=== PATIENT | female | born 1945 | race Caucasian/White ===

== ENCOUNTER 2024-11-17 13:43 | Outpatient (CLI) | payer MEDICARE, OTHER, SELFPAY ==
--- OUTSIDE RECORDS SUMMARY | 2006-11-26 07:44 | XMS_ITS | Continuity of Care Document ---
Author Organization [facility] Address [address] [place] [address] Phone Care Team Providers Care Electronic Page Makeup System Operator Name Role Phone Latonya Rain Unavailable Unavailable Procedures Procedure Date Office/outpatient Visit, Est Post-op Follow-up Visit Post-op Follow-up Visit Post-op Follow-up Visit Remove Cataract, Insert Lens Eye Exam & Treatment IOLMaster Advance Directives Directive Yes / No Effective Date File Name No Information Encounters Encounter Description Practice Location Reason(s) For Visit Diagnoses Date Provider Providers Copied on Encounter Office/outpat ient Visit, Est [facility], [address] [place] [address] [address], [place], [place], [id number], [place] tel:[phone] [facility] No Information [address] Longoria [address] [facility] , [address], [place], [place], [facility] [place][note 2], [place]. tel:[phone] [facility], [address] [place] [address] [address], [place], [place], [id number], [place] tel:[phone] [facility] No Information 9-200 7 Brise[address]da Longoria [address] [facility] , [address], [place], [address], [place]. tel:[phone] [facility], [address] [place] [address] [address], [place], [place], [id number], [place] tel:[phone] [facility] No Information 6-200 7 Briseyda Hanks. [address] [facility] , [address], [place], [place], [facility] [place][note 2], . tel:[phone] [facility], [address] [facility] [place] [address], [place], [place], [id number], tel:[phone] SEC [facility] No Information 0 8-200 7 Brise[address]da Hanks. [address] [facility] , [address], [place], [place], [facility] [place][note 2], [place]. tel:[phone] [facility], [id number] [place] [address] [address], [place], [place], [id number], tel:[phone] [facility] No Information 0 7-200 7 Brise[address] Hanks. [address] [facility] , [address], [place], [place], [facility] [place][note 2], [place]. tel:[phone] [facility], [address] [facility] [place], [facility] [address], [place], [place], [id number], tel:[phone] [facility] No Information 2-200 7 Brise[address] Longoria [address] [facility] , [address], [place], [place], [facility] [place][note 2], . tel:[phone] Referring Provider: Latonya Pedroza, [address], [place], [place], [facility] [place][note 2]. tel:[phone] Family History Family Member Type Diagnosis Age At Onset No Information Payers Payer name Insurance type Covered republican ID Authoriza tion(s) No Information Social History Type Description Quantity Date Captured Comments Sex Female Smoking Status No Information Chief Complaint And Reason For Visit No Information Reason For Referral Reason For Referral No Information History Of Present Illness Encounter Date Complaint History Of Prese nt Illness No Information Functional Status Date Functional Assessmen t No Information Instructions Date Instruction Additional Infor mation No Information Assessments Type Assessment Date No Information Patient Care Teams Name Effective Dates (start - stop) Status Members No Information
--- OUTSIDE RECORDS SUMMARY | 2024-11-17 14:00 | XMS_ITS | Clinical Summary ---
Author Organization [facility] [employer] Address [address] [place] [address] Care Team Providers Care Window Framer Name Role Phone Faraz Lake MD Primary Care Provider [phone] Source Comments [facility],non-owned Affiliates and Associated Physician Practices is amultiple site organization consisting of ambulatory clinics and hospital sitesin [place] and [place]. This disclosure is being madepursuant to the Care Everywhere program and may not contain all information available regarding this patient. Last updated 17.[facility] Allergies Active Allergy Reactions Criticality Noted Date Comments Amoxicillin Rash Medium 09/11/2019 Penicillins Rash Medium 04/24/2016 Medications * Be aware that medications may not be up to date on this document. Alwaysverify current medications with the patient. hydroCHLOROthia zide (HYDRODIURIL) 25 MG tablet Take 25 mg by mouth once daily 0 Active RESTASIS 0.05 % ophthalmic suspension 9 Active pantoprazole EC (PROTONIX) 40 MG tablet Take 40 mg by mouth 2 times daily 0 Active Multiple Vitamins-Minera ls (PRESERVISION AREDS 2 PO) Active aspirin EC (ECOTRIN) 81 MG tablet Take 81 mg by mouth once daily Active acetaminophen (TYLENOL) 500 MG tablet Take 500 mg by mouth every 6 hours as needed Active escitalopram (LEXAPRO) 20 MG tablet Take 10 mg by mouth once daily 1 Active atenolol (TENORMIN) 100 MG tablet Take 100 mg by mouth once daily 1 Active amitriptyline (ELAVIL) 10 MG tablet Take 10 mg by mouth at bedtime 1 Active sucralfate (CARAFATE) 1 GM tablet Take 1 g by mouth as needed 1 Active tretinoin (RETIN-A) 0.05 % cream APPLY TOPICALLY TO THE AFFECTED AREA DAILY NEEDED 1 Active pravastatin (PRAVACHOL) 10 MG tablet 5 mg EVERY OTHER DAY 1 Active glycopyrrolate (ROBINUL) 1 MG tablet Take 1 mg by mouth 2 times daily 1 Active celecoxib (CELEBREX) 200 MG capsule 1 Active amLODIPine (Norvasc) 5 MG tablet Take 1 (one) tablet by mouth once daily 5 Active azithromycin (Zithromax) 250 MG tablet 2 tablets on the first day, then 1 tablet daily for 4 days Orally Once a day for 5 day(s) 5 Active azithromycin (Zithromax) 250 MG tablet 2 tablets on the first day, then 1 tablet daily for 4 days Orally Once a day for 5 day(s) 5 Active chlorhexidine (Peridex) 0.12 % solution RINSE AND SPIT 15ML BY MOUTH AFTER BREAKFAST AND BEFORE BEDTIME 5 Active clindamycin (Cleocin) 150 MG capsule TAKE 1 CAPSULE BY MOUTH EVERY 6 HOURS UNTIL ALL TAKEN 5 Active diclofenac sodium (Voltaren) 1 % gel Apply 4 (four) g to affected area 4 times daily 5 Active losartan (Cozaar) 50 MG tablet Take 1 (one) tablet by mouth 2 times daily 5 Active Medrol 4 MG tablet as directed Orally as directed for 6 days 5 Active nortriptyline (Pamelor) 10 MG capsule Take 1 (one) capsule by mouth at bedtime 5 Active celecoxib (CeleBREX) 200 MG capsule Take 1 (one) capsule by mouth once daily 90 capsule 3 5 Active Active Problems No known active problems Encounters Date Type Department Care Team Description 11/13/2024 Orders Only [facility] - Orthopedic Surgery [address] [place] [id number] Huan Gamble MD Left knee pain, unspecified chronicity from Last 3 Months Immunizations Immunization Administration Dates Next Due INFLUENZA VACCINE 11/14/2020, 9,10/29/2017,2016,12/09/2013,12/08/2012,01/20/2003 INFLUENZA VACCINE, ADJUVANTE D, QUADR. (FLUAD QUADRIVALENT; 65Y+) (AIIV4) 11/20/2019 INFLUENZA VACCINE, HIGH-DOSE , QUADR. (FLUZONE HIGH-DOSE QUADRIVALENT; 65Y+), 0.7 ML (HD-IIV4) 11/20/2019 PNEUMOCOCCAL PCV VACCINE 12/10/2015 PNEUMOCOCCAL PPSV23 10/24/2012 Pneumococcal Pcv13 Conj 07/22/2018 TDAP (7yrs+) 07/22/2018 Td (Adult), 2 Lf Tetanus Tox oid, Adsorbed, Pf 06/20/2004 ZOSTER VACCINE, LIVE 10/24/2012,10/09/2010 Zoster Hzv Vacc Recombinant Inj Im 08/22/2018, Social History Tobacco Use Types Packs/Day Years Used Date Smoking Tobacco: Never Smokeless Tobacco: Never Tobacco Cessation:Counseling Given: Not Answered Alcohol Use Standard Drinks/Week Comments Yes 3 (1 standard drink = 0.6 oz pur e alcohol) AUDIT-C Answer Date Recorded Q1: How often do you have a drink containing alc ohol? 2-4 times a month 09/11/2019 Average Number of Drinks Not on file 020 Frequency of Binge Drinking Not on file 08/19 PHQ-2 Answer Date Recorded Patient Health Questionnaire-2 Score 0 08/05/2024 Comments No Sex and Gender Information Value Date Recorded Sex Assigned at Not on file Legal Sex Female 9:31 AM CDT Gender Identity Not on file Sexual Orientation Not on file Last Filed Vital Signs Vital Sign Reading Time Taken Comments Blood Pressure 132/82 12/14/2020 2:46 PM CDT Pulse 62 12/14/2020 2:46 PM CDT Temperature 36.2 C (97.1 F) 12/14/2020 2:46 PM CDT Respiratory Rate - - Oxygen Saturation 96% 12/14/2020 2:46 PM CDT Inhaled Oxygen Concentration - - Weight 85.3 kg (188 lb) 12/14/2020 2:46 PM CDT Height 162.6 cm (5' 4) 12/14/2020 2:46 PM CDT Body Mass Index 32.27 12/14/2020 2:46 PM CDT Plan of Treatment Upcoming Encounters Date Type Department Care Team (Late st Contact Info) Description 12/16/2024 10:15 AM CDT Office Visit [facility] - Orthopedic Surgery [address] [place] [address] Huan Gamble MD [address] [address] Health Maintenance Due Date Last Done Comments MEDICARE AWV 12 MONTHS 1945 Opioid Medication Agreement - Annual 1945 HEPATITIS C SCREENING 05/04/1965 Respiratory Syncytial Virus (RSV) Vaccine Pt: or over 60 yrs (1 - 1-dose 75+ series) 05/08/2022 COVID-19 VACCINE ( season) 2024 02/02/2021, 04/21/2020, 03/24/2020 INFLUENZA VACCINE (#1) 2024 , 11/14/2020, 11/20/2019, Additional history exists DTAP/TDAP/TD VACCINES (2 - Td or Tdap) 07/22/2028 07/22/2018, 06/20/2004 PNEUMOCOCCAL VACCINE 50+ Completed 019, 12/10/2015, 10/24/2012 ZOSTER VACCINE Completed 08/22/2018, 05/20, 10/24/2012, Additional history exists BONE DENSITY TESTING Completed 12/18/2023, 08/02/2021, 08/26/2018 DEPRESSION SCREENING Completed 08/12/2024 HEPATITIS B VACCINE Aged Out No longe r eligible based on patient's age to complete this topic HIB VACCINE Aged Out No longer eligi ble based on patient's age to complete this topic HPV VACCINE Aged Out No longer eligi ble based on patient's age to complete this topic MENINGOCOCCAL (Group B) VACCINE SHARED DECISION-MAKING Aged Out No longer eligible based on patient's age to complete this topic MENINGOCOCCAL GROUPS A/C/Y/W VACCINE Aged Out No longer eligible based on patient's age to complete this topic Goals Goal Patient Goal Type Associated Problems Recent Progress Patient-Stated? Author Mobility General No Blessing Lopez RN Note: Expected end date: 12/18/2019 The goal is to maintain or improve your mobility at the optimum level for you. Interventions: Insurance MEDICARE [facility] MEDICARE Care Teams Window Framer Relationship Specialty Start Date End Date Faraz Lake MD [address] [facility] [address] [place] [address] PCP - General Family Medicine 08/12/24
--- OUTSIDE RECORDS SUMMARY | 2024-11-17 14:00 | XMS_ITS | Patient Health Record ---
Author Organization 1 OF [facility] Address [address] [place] [address] Care Team Providers Care Painter Supervisor Name Role Phone Bryanna Wylie MD Primary Care Provider Sandip Farr Unavailable Allergies Allergen (clinical drug ingredient) Drug/Non Drug Allergy documented on EMR Reaction Allergy Type Onset Date Status amoxicillin Amoxicillin Unknown Drug Allergy Act chrissie Results Component Value Reference Range Notes X ray : Lower leg, left Reviewed date:05/27/2024 01:38:16 PM Interpretation:No significant radiologic evidence of abnormality Performing Lab: Notes/Report: No significant radiologic evidence of abnormality Reason For Referral No Information Medications Medication SIG (Take, Route, Frequency, Duration) Notes Start Date End Date Status Amitriptyline HCl Ac tive Azithromycin 250 MG Tablet 2 tablets on the first day, then 1 tablet daily for 4 days Orally Once a day; Duration: 5 day(s) 06/17/2024 Active Medrol 4 MG Tablet Therapy Pack as directed Orally as directed; Duration: 6 days 06/11/2024 Not-Taking/PRN Azithromycin 250 MG Tablet 2 tablets on the first day, then 1 tablet daily for 4 days Orally Once a day; Duration: 5 day(s) 06/11/2024 Not-Taking/PRN Diclofenac Sodium 1 % Gel as directed Topical Apply no more than 4 grams to affected area of foot Q6-8 hours PRN Pain; Duration: 30 days 06/17/2024 Active hydroCHLOROthiazide 25 MG Tablet 1 tablet Orally Once a day Active Atenolol 50 MG Tablet 1 tablet Orally Once a day Active Restasis 0.05 % Emulsion 1 into affected eye Ophthalmic Twice a day Active PreserVision AREDS Capsule Orally Active Motrin PRN Not-Taking /PRN Tylenol PRN Not-Taking /PRN Pantoprazole Sodium Active Pravastatin Sodium A ctive Social History Tobacco Use: Social History Observation Description Date Details (start date - stop date) Never Smoker NA - NA Social History Tobacco Use: Social Info Question Answer Notes Tobacco Use/Smoking Are you a nonsmoker Additional Details Category Social Info Options Details Miscellaneous: Exercise: Moderate Housing: owns a home Occupation: Retired Drugs/Alcohol: Alcohol use: Socially Problems Problem Type SNOMED Code ICD Code Onset Dates Problem Status W/U Status Risk Notes Problem Walking disability (443011431) Difficulty in walking (R26.2) Active confirmed Problem Acquired hammer toe of left foot (6545815897637127 ) Hammer toe of left foot (M20.42) Active confirmed Problem Acquired hammer toe of left foot (4330747785149379 ) Hammertoe of second toe of left foot (M20.42) Active confirmed Problem Osteomyelitis (71483722) Osteitis of foot (M86.9) Active confirmed Problem Personal history of primary malignant neoplasm of breast (247005141) HX: breast cancer (Z85.3) Active confirmed Vital Signs Height 64 in 06/11/2024 Weight 180 lbs 06/11/2024 BMI 30.89 kg/m2 06/11/2024 Encounters Encounter Location Date Provider Diagnosis 1 OF [facility] [address] [employer] [address] [address] 01/14/2024 Sandip Wadsworth Hammer toe of left foot M20.42 ; Incurvated nail L60.8 ; Toe pain, left M79.675 ; Nail disorder, unspecified L60.9 ; Onychogryphosis L60.2 ; Nail dystrophy L60.3 and Contracture of toe of left foot M20.5X2 1 OF [facility] [address] [employer] [address] [place] [address] 01/27/2024 Sandip Wadsworth Hammer toe of left foot M20.42 ; Toe pain, left M79.675 and Contracture of toe of left foot M20.5X2 1 OF [facility] [place] [address] [place] [address] 01/31/2024 Sandip Wadsworth Surgical aftercare, musculoskeletal system Z47.89 and Contracture of toe of left foot M20.5X2 1 OF [facility] [address] [place] [address] 05/14/2024 Sandip Wadsworth Contracture of toe of left foot M20.5X2 ; Mass of soft tissue of lower leg M79.89 ; Left leg pain M79.605 ; Toe pain, left M79.675 and HX: breast cancer Z85.3 [facility] [address] [place] [address] 05/22/2024 Christophtroy Wadsworth Toe pain, left M79.675 ; Contracture of toe of left foot M20.5X2 ; Sesamoiditis of right foot M25.871 ; Pain of right great toe M79.674 and Left leg pain M79.605 [facility] [address] [place] [address] 05/28/2024 Christlynda Wadsworth Toe pain, left M79.675 ; Contracture of toe of left foot M20.5X2 ; Pain of right great toe M79.674 and Surgical aftercare, musculoskeletal system Z47.89 1 [facility] [address] [place] [address] 06/11/2024 Sandip Wadsworth Toe pain, left M79.675 ; Surgical aftercare, musculoskeletal system Z47.89 ; Pain in joint of left foot M25.572 and Hammertoe of second toe of left foot M20.42 3 [facility] [address] [address] 06/17/2024 Sandip Wadsworth Contracture of toe of left foot M20.5X2 ; Pain in joint of left foot M25.572 ; Hammertoe of second toe of left foot M20.42 and Surgical aftercare, musculoskeletal system Z47.89 1 OF [facility] [address] [place] [address] 05/04/2024 Sandip Wadsworth 1 OF Perez [facility] [employer] [address] [address] 05/14/2024 Sandip Wadsworth Assessments Encounter Date Diagnosis (ICD Code) Assessment Notes Treatment Notes Treatment Clinical Notes Section Notes 01/14/2024 Incurvated nail (ICD-10 - L60.8) Patient has had multiple matrixectomy's of the left hallux nail plate but she continues to have some recurrence of growth of nail plate tissue from mostly the nailbed but to some degree the nail root as well. Today there is mild incurvation of the nail plate at the distal and lateral margins but no acute paronychia. Recommended and performed debridement of the nail as tolerated. Patient will follow-up as needed for this condition. 01/14/2024 Hammer toe of left foot (ICD-10 - M20.42) Discussed various options for managing the pain in the left second hammertoe, including tenotomy and strapping the toe to simulate the effects of a tenotomy. I recommended starting with strapping the toe to see if it alleviates the discomfort. The toenail was trimmed. The patient can shower and leave the tape on as long as it remains comfortable. Pt can continue to wea spacer. F/U in 2 week 01/27/2024 Hammer toe of left foot (ICD-10 - M20.42) Recommended proceeding with LT 2nd toe flexor tenotomy today. 01/27/2024 Toe pain, left (ICD-10 - M79.675) 01/31/2024 Surgical aftercare, musculoskeletal system (ICD-10 - Z47.89) The surgical toes were cleaned with alcohol and Patient advised the procedure appears to be healing and no bandage necessary at this point and tomorrow the patient may shower. Patient was advised to allow ster-strips to fall off on their own but may remove after 7 days. Patient instructed to clean toe with rubbing alcohol daily for at least 1 week and monitor for SOI. Patient may resume closed toe shoes as tolerated. Contact office with any concerns, otherwise no further f/u for this condition necessary 05/14/2024 Contracture of toe of left foot (ICD-10 - M20.5X2) We discussed performing a repeat flexor tenotomy of the LT 2nd toe along with a capsulotomy procedure of the IPJ of the toe in the office versus standard hammertoe surgery in the OR. We discussed her results may not be cosmetically adequate and her toe may continue to deviate depsite undergoing total hammertoe surgery in the OR. After much discussion, and no guarantees with either procdure, she chose to proceed with the flexor tenotomy/capsulot thais at a later date due to obligations in the next few days. The procedure was scheduled for next week. 05/14/2024 Mass of soft tissue of lower leg (ICD-10 - M79.89) 05/22/2024 Contracture of toe of left foot (ICD-10 - M20.5X2) A tenotomy procedure for the left second toe was recommended today. The patient agreed to the procedure, and consent was obtained. Procedure details are outlined below, and post-operative instructions were provided to the patient. F/u 1 week 05/22/2024 Toe pain, left (ICD-10 - M79.675) 05/28/2024 Toe pain, left (ICD-10 - M79.675) 06/11/2024 Toe pain, left (ICD-10 - M79.675) We discussed a ligament or tendon around the joint may have ruptured, but I would expect the pain to be more on the bottom of her foot. We discussed gout as a possible reason for her redness, but unlikely. She declined taping of the toe today. Due to the possibility of infection, she will be prescribed a Z-pack and a Medrol dose pack today (Medrol starting tomorrow). Verdi padding was taped to the bottom of her foot to alleviate her pain. She will monitor her symptoms and call if they worsen. 06/17/2024 Contracture of toe of left foot (ICD-10 - M20.5X2) Discussed possible surgical intervention for LT 2nd toe if it continues to bother her and specifically discussed hammertoe repair withby PIPJ arhtrodesis. However before proceeding with surgery I recommended giving it more time and tx today with topical diclofenac and offload in sx shoe. Also offered patient a Rx for Z pack to take if she is concerned there is infection. Pt will call if she starts the abx. Prescription sent to pharmacy. Patient will RTO PRN if the condition fails to improve. 06/17/2024 Pain in joint of left foot (ICD-10 - M25.572) 06/11/2024 Surgical aftercare, musculoskeletal system (ICD-10 - Z47.89) 06/11/2024 Pain in joint of left foot (ICD-10 - M25.572) 05/28/2024 Contracture of toe of left foot (ICD-10 - M20.5X2) 05/22/2024 Sesamoiditis of right foot (ICD-10 - M25.871) 05/14/2024 Left leg pain (ICD-10 - M79.605) We discussed the cysts and her [facility] ultrasound results in detail and an ultrasound was performed today in office which was negative for any visualized cyst or ST mass of the LT leg. I recommended an x-ray of her left lower leg to evaluate for any bony pathology. 01/31/2024 Contracture of toe of left foot (ICD-10 - M20.5X2) 01/14/2024 Toe pain, left (ICD-10 - M79.675) 01/27/2024 Contracture of toe of left foot (ICD-10 - M20.5X2) 05/22/2024 Pain of right great toe (ICD-10 - M79.674) The patient was informed that the pain in the right hallux, (plantar 1st MPJ), may be related to a prominent sesamoid. It was advised that if symptoms persist, further evaluation with an X-ray may be considered during next visit to assess for bony abnormalities and any associated ligamentous injury to be ruled out. F/u in 1 week 05/14/2024 Toe pain, left (ICD-10 - M79.675) 01/14/2024 Nail disorder, unspecified (ICD-10 - L60.9) 05/28/2024 Pain of right great toe (ICD-10 - M79.674) 06/17/2024 Hammertoe of second toe of left foot (ICD-10 - M20.42) 06/11/2024 Hammertoe of second toe of left foot (ICD-10 - M20.42) 06/17/2024 Surgical aftercare, musculoskeletal system (ICD-10 - Z47.89) 05/28/2024 Surgical aftercare, musculoskeletal system (ICD-10 - Z47.89) The surgical toe was cleaned with alcohol and if necessary a new splint applied followed by application of light sterile gauze dressing. Patient advised the procedure appears to be healing well and tommorow may remove the dressing , excluding ster-strips. Advised to allow ster-strips to fall off on their own but may remove after 7 days. Patient instructed to clean toe with rubbing alcohol daily for 1 week and monitor for SOI. Patient may resume closed toe shoes today and resume bathing tomorrow. Contact office with any concerns, otherwise no further f/u for this condition necessary. 05/22/2024 Left leg pain (ICD-10 - M79.605) 05/14/2024 HX: breast cancer (ICD-10 - Z85.3) 01/14/2024 Onychogryphosis (ICD-10 - L60.2) 01/14/2024 Nail dystrophy (ICD-10 - L60.3) 01/14/2024 Contracture of toe of left foot (ICD-10 - M20.5X2) Plan Of Treatment No Information Insurance Providers Payer Name Payer Address Payer Phone Subscriber Number Group Number Insured Name Patient Relationship to Insured Coverage Start Date Coverage End Date Medicare [address] [place], [place] [id number] Mary Alice Nguyen Self - patient is the insured [facility] [employer] [facility] [address] [place] [address] [id number] Mary Alice Nguyen Self - patient is the insured Medical (General) History Medical History History ICD Code Chronic Heart Burn/Acid Reflux Depression ARED Gastroesophageal reflux disease (GERD) Cancer High blood pressure Surgical History Surgery Date(Month/Year) Right knee meniscus previous left hallux nail procedures tenotomy LT 2nd digit 05/22/24
--- OUTSIDE RECORDS SUMMARY | 2024-11-17 14:00 | XMS_ITS | Encounter Summary ---
Author Organization [facility] Address [address] [place] [address] Care Team Providers Care Camera Prototyping Engineer Name Role Phone Faraz Lake MD Primary Care Provider [phone] Encounter Details Date Type Department Care Team (Late Contact Info) Description 11/13/2024 Orders Only [facility] [address] [place] [phone] Huan Gamble MD [address] [facility] [address] [place], [place] [id number] Left knee pain, unspecified chronicity Social History Tobacco Use Types Packs/Day Years Used Date Smoking Tobacco: Never Smokeless Tobacco: Never Alcohol Use Standard Drinks/Week Comments Yes 3 [...] on file Sexual Orientation Not on file documented as of this encounter Plan of Treatment Upcoming Encounters Date Type Department Care Team (Late Contact Info) Description 12/16/2024 10:15 AM CDT Office Visit [facility] [address] [facility] [place] [address] Huan Gamble MD [address] [facility] [address] [place] [address] Scheduled Orders Name Type Priority Associated Diagnoses Orde r Schedule XR Knee Left 4Vw or More Imaging Routine Left knee pain, unspecified chronicity 1 Occurrences starting 11/13/2024 until 11/13/2025 documented as of this encounter Goals Goal Patient Goal Type Associated Problems Recent Progress Patient-Stated? Author Mobility General No Blessing Lopez RN Note: Expected end date: 12/18/2019 The goal is to maintain or improve your mobility at the optimum level for you. Interventions: documented as of this encounter Visit Diagnoses Diagnosis Left knee pain, unspecified chronicity- Primary documented in this encounter Care Teams Camera Prototyping Engineer Relationship Specialty Start Date End Date Faraz Lake MD [address] [facility] [address] [place] [id number] PCP - General Family Medicine 08/12/24 documented as of this encounter
--- OUTSIDE RECORDS SUMMARY | 2024-11-17 14:00 | XMS_ITS | Clinical Summary ---
Author Organization [facility] Address [address] [place] [address] Phone Care Team Providers Care Diathermy Equipment Repairer Name Role Phone Bryanna Wylie MD Primary Care Provider [phone] Shantanu Arzola MD Unavailable [phone] Allergies Active Allergy Reactions Criticality Noted Date Comments Amoxicillin Rash Medium Penicillins Rash Medium 04/24/2016 Medications pravastatin (PRAVACHOL) 20 mg tablet 018 Active atenolol (TENORMIN) 25 mg tablet 12/06/2016Atenolol, po solid 25 mg TabletPOdailyCurrent Medication 017 Active hydroCHLOROth iazide (HYDRODIURIL) 25 mg tablet 12/06/2016Hydrochlorothi azide, po solid 25 mg TabletPOas directedCurrent Medication 017 Active escitalopram (LEXAPRO) 10 mg tablet 12/06/2016Lexapro, po solid 10 mg TabletPOdailyCurrent Medication [address] (NexIUM) 40 mg capsule 12/06/2016Nexium, po solid 40 mg Capsule,delayed release (enteric coated)POdailyCurrent Medication 017 Active vit C,E-Zn-coppr- lutein-zeaxan (OCUVITE LUTEIN AND ZEAXANTHIN) 60 mg-30 unit- 15 mg-2 mg-6 mg capsule 12/06/2016Preservision areds 2, po solid 250-200-40 CapsulePOdailyCurrent Medication Active cycloSPORINE (RESTASIS) 0.05 % ophthalmic emulsion 12/06/2016Restasis 0.05 % Dropperette, single-use drop dispenserODBIDCurrent Medication 017 Active amitriptyline (ELAVIL) 25 mg tablet 018 Active aspirin 81 mg tablet Take 81 mg by mouth daily. 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 Cancer Staging:Clinical stage from 2016: Tis (DCIS), N0 - Signed by Robert Martinez MD on 10/09/2017 HTN (hypertension) 05/19/2013 Gastroesophageal reflux disease 04/16/2012 Immunizations Immunization Administration Dates Next Due Influenza, Unspecified 10/29/2017,12/06/2016 Pneumococcal Conjugate, Unspecified 12/10/2015 ZOSTER LIVE 10/09/2010 Surgical History Surgery Date Site/Laterality Comments MASTECTOMY Right BREAST BIOPSY Right COLONOSCOPY BREAST BIOPSY Left Medical History Medical History Date Comments Breast cancer (HCC) Hypertension Hypercholesteremia Family History Medical History Relation Name Comments Cancer Mother Family history of malignant neoplasm - (Added by TW Conv) Pancreatic cancer Mother Family his tory of pancreatic cancer - (Added by TW Conv) Relation Name Status Comments Mother (Age 72) 72 when di agnosed Social History Tobacco Use Types Packs/Day Years Used Date Smoking Tobacco: Never Smokeless Tobacco: Never Alcohol Use Standard Drinks/Week Comments Not Currently 0 (1 standard drink = 0.6 oz pur e alcohol) social Comments No Sex and Gender Information Value Date Recorded Sex Assigned at Not on file Legal Sex Female 10:49 AM CDT Gender Identity Not on file Sexual Orientation Not on file Obstetrics History Para Term AB IAB SAB Ectopic Multiple Livin g Live Births 3 3 3 Date Outcome GA Total Labor Labor/2nd/3rd Weight Sex Type Anes PTL Cassandra A1 A5 Name Clin Term Term Term Last Filed Vital Signs Vital Sign Reading Time Taken Comments Blood Pressure 127/82 10/14/2018 11:18 AM CDT Pulse 64 10/14/2018 11:18 AM CDT Temperature 36.8 C (98.3 F) 10/14/2018 11:18 AM CDT Respiratory Rate 16 10/14/2018 11:18 AM CDT Oxygen Saturation 96% 10/14/2018 11:18 AM CDT Inhaled Oxygen Concentration - - Weight 79.8 kg (176 lb) 10/14/2018 11:18 AM CDT Height 162.6 cm (5' 4) 10/14/2018 11:18 AM CDT Body Mass Index 30.21 10/14/2018 11:18 AM CDT Plan of Treatment Health Maintenance Due Date Last Done Comments Depression Screening 1945 Fall Risk Assessment 1945 Hepatitis C Screening 1945 Hepatitis B Screening 05/08/1965 DTaP/Tdap/Td Vaccine (1 - Tdap) 06/21/2004 5 Well Visit 65+ 05/08/2012 Osteoporosis Screening-Bone Density Scan 08/03/2023 08/02/2021, 08/26/2018 Covid-19 Vaccine (2024-2 6 season) 2024 02/02/2021, 04/21/2020, 03/24/2020 Influenza Vaccine (#1) 2024 , 11/20/2019, 12/08/2018, Additional history exists Pneumococcal vaccine 65+ Completed 12/10/2015, 07/2012 Zoster Vaccine Completed 08/29/2018, 05/20, 10/24/2012, Additional history exists Breast Cancer Screening-Mammogram Discontinued 10/08/2023, 09/05/2022, 07/18/2021, Additional history exists Procedures Procedure Name Priority Date/Time Associated Diagnosis Comments SCREENING MAMMOGRAM LEFT W SEVERIANO UNILATERAL ONLY Schedule Routine, Read Routine (OP Routine) 10/08/2023 12:52 PM CDT Encounter for screening mammogram for malignant neoplasm of breast from Last 3 Months or Most Recently Relevant to Health Maintenance Results * Screening Mammogram Left W Severiano Unilateral Only (10/08/2023 12:52 PM CDT) Anatomical Region Laterality Modality Breast Left Mammography Impressions 10/08/2023 1:07 PM CDT BI-RADS ATLAS category (left): 1 - Negative There is no mammographic evidence of malignancy. A 1 year screening mammogram is recommended. The patient has been or will be contacted. We recommend annual screening mammography for women at average risk of breast cancer beginning at age 40, based on guidelines of the [employer] (ACR Practice Parameter for the Performance of Screening and Diagnostic Mammography) and [employer]. For women with and elevated risk of breast cancer, please refer to the ACR Practice Parameter for specific screening recommendations. The patient will be entered into a reminder system with a target due date of 1 year for her next screening exam. Narrative 10/08/2023 1:07 PM CDT Screening Mammogram Left W Severiano Unilateral Only: 10/08/23 The study was acquired using full field digital technology and interpreted from soft copy. 2D digital mammographic views, as well as 3D digital tomosynthesis were performed in the CC and MLO projections. CLINICAL: Encounter for screening mammogram for malignant neoplasm of breast. Medical history includes breast cancer. No known family history of breast cancer. Prior right mastectomy. COMPARISONS: 09/05/2022 Screening Mammogram Left W Severiano Unilateral Only 07/18/2021 Screening Mammogram Left W Severiano Unilateral Only 07/14/2020 Screening Mammogram Left W Severiano Unilateral Only BREAST TISSUE: The left breast has scattered areas of fibroglandular density. FINDINGS: No suspicious findings are identified in the left breast on mammogram. Bryanna Wylie MD IMG MAMMO PROCEDURES Final Result from Last 3 Months or Most Recently Relevant to Health Maintenance Insurance MEDICARE FOR LIFE MEDICARE FOR LIFE Care Teams Diathermy Equipment Repairer Relationship Specialty Start Date End Date Bryanna Wylie MD [address] [address] PCP - General 06/12/16 Shantanu Arzola MD [address] [place] [id number] Referring Physician Surgery 04/14/18
--- NOTE | 2024-11-17 14:10 | ECG_ITS ---
Test Date: 2024-11-17 14:27:50 Measurements Intervals [place] Rate: 75 P: -9 WV: 188 QRS: -7 QRSD: 78 T: 47 QT: 385 QTc: 431 Interpretive Statements SINUS RHYTHM LOW QRS VOLTAGE IN PRECORDIAL LEADS [QRS DEFLECTION < 1.0 mV IN CHEST LEADS] POSSIBLE ANTERIOR MYOCARDIAL INFARCTION [30 ms Q WAVE IN V3/V4, OR R < 0.2 mV IN V4], PROBABLY OLD INFERIOR MYOCARDIAL INFARCTION [40+ ms Q WAVE AND/OR ST/T ABNORMALITY IN II/aVF], OF INDETERMINATE AGE No previous ECG available for comparison Electronically Signed On 11-17-2024 14:47:27 CDT by Navin Whittaker M.D.
[2024-11-17 14:44] LABS: Alanine Aminotransferase 19 U/L (6-35); Albumin Level 4.2 g/dL (3.5-5.1); Alkaline Phosphatase 96 U/L (38-126); Amylase 72 U/L (30-110); Anion Gap 5 mmol/L (4-12); Aspartate Amino Transferase 23 U/L (14-36); Bilirubin,Total 0.4 mg/dL (0.2-1.3); Blood Urea Nitrogen 17 mg/dL (7-17); Calcium 9.0 mg/dL (8.4-10.2); Carbon Dioxide 31 mmol/L (22-30); Chloride 99 mmol/L (98-107); Estimated Glomerular Filt Rate > 60; Glucose 114 mg/dL (65-110); Lipase 85 U/L (23-300); Potassium 4.0 mmol/L (3.4-5.0); Sodium 135 mmol/L (137-145); Total Protein 7.1 g/dL (6.3-8.2)
== END 2024-11-17 13:44 | disposition home or self-care (01) ==
LOC: ANHSURGERY 13:45
PROVIDERS: Anesthesiology; PCP Family Medicine; Visit Provider Surgery
DX: Z01.818 Encounter for other preprocedural examination (principal); K82.8 Other specified diseases of gallbladder; I10 Essential (primary) hypertension; I25.2 Old myocardial infarction
CPT/HCPCS: 36415; 80048; 80076; 82150; 83690; 93005

== ENCOUNTER 2024-11-23 01:20 | Day surgery (SDC) | payer MEDICARE, OTHER, SELFPAY ==
--- NOTE | 2024-11-16 12:51 | PC.NURSE ---
[facility] has started construction of its new state of the art ER which will open Spring 2026. With this, we anticipate parking may be a challenge for some our surgical patients and families. Parking spaces are limited but are available for all Surgical, obstetrics, and ER patients sharing this lot. If you arrive and find you are having a hard time finding a parking space, please note that we understand the challenges, please drive around the hospital and park near Hospital Entrance 1. When you enter this entrance, you can ask a volunteer to direct or take you back to the surgical waiting area to check in. We appreciate everyone?s understanding of these expected challenges while we build for your future. Report to the Outpatient Waiting Room, entrance under the green pavilion located off [address], at time _10:30 AM on date _11/23/24 . Planned Procedure Time: _12:30 PM .? Time changes happen often and if your time is changed the preop area will call you the afternoon before. - You and your visitor will be asked to self-screen and do not enter if you have any COVID symptoms. Please call surgeon if you need to reschedule. - A mask is optional within the hospital at this time. Patients may have clear liquids (water, carbonated beverages, clear teas, apple juice) until 3 hours prior to surgery( 9:30 AM) with a maximum of 20 ounces. - No food from midnight until time of surgery and no smoking, or chewing tobacco (or any form of nicotine). No chewing gum, candy or mints. Take only the following medications with a SIP of water on the morning of surgery: _EYE DROPS DO NOT STOP ANY OF YOUR OTHER PRESCRIPTION MEDICATIONS PRIOR TO SURGERY EXCEPT THE FOLLOWING Hold all vitamins and supplements for 3 days per anesthesiologist.LAST DOSE 11/19/24 Medications to discontinue per physician CELECOXIB PER DR SCALES Please no make-up, nail south african, hairspray, perfume, deodorant, or body powder the day of surgery.? No jewelry (including any body piercings) or valuables the day of surgery, leave them at home.? Please take a shower or bath the night before, or the morning of, surgery with an antibacterial soap.? Wear comfortable, loose fitting clothing.? Children are encouraged to wear pajamas. - Jewelry must be removed prior to entering the operating room.? Rings and piercings that are not removed may be cut off. - The hospital will not accept responsibility for valuables.? - Please leave all valuables, including medications, at home the day of surgery. If you are going home after surgery, a licensed charter coach driver must drive you home.? - NO public transportation without another adult if you receive anesthesia. - We recommend that an adult stay with you for 24 hours following discharge. - We also recommend that you do not drive, make important decision, drink alcoholic beverages, or take any drugs that were not prescribed by your health care provider for at least 24 hours after your discharge time. For Pediatric surgeries, we recommend two adults accompany the child home. Follow any additional instructions given to you from your surgeon. Telephone instructions given to __PATIENT and asked if any additional questions and then verbalized understanding. Patient advised to call surgeon office or pre surgery nurse liaison [phone] if any additional questions.
[2024-11-16 13:15] VITALS: BMI 29.2
[2024-11-23] VITALS (12 sets, daily range): BP systolic 131–155; BP diastolic 77–91; PULSE 74–88; RESP 12–18; TEMP 36.3–37.2; O2SAT 94–100; BMI 29.8
[2024-11-23] MEDS: ACETAMINOPHEN 500 MG TABLET 1000 MG PO (09:07)
[2024-11-23] MEDS: KETOROLAC 15 MG/ML VIAL (*BKC) IV PUSH (09:07)
--- NOTE | 2024-11-23 09:26 | SUR.PREOP ---
ADMINISTRATIVE STAFF SUPERVISOR prep pt for surgery by shaving groin area. the clippers made a small abrasion on pt skin. surgeon made aware
--- NOTE | 2024-11-23 10:47 | WPDANESEPPF ---
Anes - Initial Pre Proc Eval Procedure: Operation Date: 11/23/24 10:30 Proposed Procedures p Laparoscopic Cholecystectomy, Possible Open - Derrick Gonzales MD Date/Time: 11/23/24 10:47 Surgeon: Derrick Gonzales MD Pre Op Diagnosis: Biliary Cholecystitis Patient Data Age: 79 Gender: F Height: 1.63 m Weight: 78.8 kg Last Vital Signs Temp 36.3 C L 11/23/24 08:42 Pulse 74 11/23/24 08:42 Resp 16 11/23/24 08:42 BP 145/88 H 11/23/24 08:42 Pulse Ox 98 11/23/24 08:42 O2 Del Method Room Air 11/23/24 08:42 Allergies Allergy/AdvReac Type Severity Reaction Status Date / Time Penicillins Allergy Unknown RASH Verified 11/23/24 09:09 Home Medications ?Medication ?Instructions ?Recorded ?Confirmed ?Type amlodipine 5 mg tablet 5 mg PO DAILY 11/04/24 11/16/24 History hydrochlorothiazide 25 mg tablet 25 mg PO DAILY 11/04/24 11/16/24 History losartan 25 mg tablet 25 mg PO DAILY 11/04/24 11/16/24 History nortriptyline 25 mg capsule 25 mg PO DAILY 11/04/24 11/16/24 History pantoprazole 40 mg tablet,delayed 40 mg PO QAM 11/04/24 11/16/24 History release pravastatin 10 mg tablet 10 mg PO DAILY 11/04/24 11/16/24 History sucralfate 1 gram tablet 1 g PO BID 11/04/24 11/16/24 History vitamins A,C,U-bhok-axkkan 4,296 1 cap PO BID 11/04/24 11/16/24 History mcg-226 mg-90 mg capsule (PreserVision AREDS) celecoxib 200 mg capsule 200 mg PO PRN PRN pain 11/16/24 11/16/24 History cyclosporine 0.05 % eye drops in a 1 drp EACH EYE Q12H 11/16/24 11/16/24 History dropperette (Restasis) losartan 50 mg tablet 50 mg PO BID 11/16/24 11/16/24 History Patient hx anesthesia problems: none Family hx anesthesia problems: none Results Review: All pre-operative results and documents have been reviewed as part of the pre-operative evaluation. [facility] Past Medical History Medical History (Updated 10/06/25 @ 10:53 by Josep Pimentel DO) Hyperlipidemia Hypertension Pulmonary embolism AREDYLD syndrome Migraine GERD (gastroesophageal reflux disease) Cancer Blood clot in vein Family History Family History (Updated 11/04/24 @ 13:13 by Wen Hoover MA) Other Cancer Social History Social History Smoking status: Unknown if ever smoked Alcohol intake: current Anes - Eval Final PreProcedure Day of Procedure 11/23/24 10:47 Patient weight: overweight Heart: regular rate and rhythm Lungs: clear to auscultation Airway: Mallampati scale class III Neurological: alert and oriented Last oral intake: >/= 8 hours ASA classification: III Emergent: no Anesthetic plan: proceed Anesthesia type and monitoring: general ETT and standard monitoring Results Review: All pre-operative results and documents have been reviewed as part of the pre-operative evaluation. Informed Consent: The patient's anesthetic plan and its attendant risks and benefits were discussed with the patient/family/POA. Questions were solicited and answers provided to the satisfaction of the patient/family/POA.
--- NOTE | 2024-11-23 10:59 | WPDHPUPDATE1 ---
History and Physical Update Update Date/Time: 11/23/24 10:59 History and Physical has been reviewed, including an updated exam of the patient. There are NO changes in the patient's condition. Risks, benefits, and alternatives have been discussed and questions answered. Patient agrees to proceed with procedure.
[2024-11-23] MEDS: ceFAZolin 2 GM in SODIUM CHLORIDE 0.9% IV 50 ML 100 ML IVPB (11:40)
[2024-11-23] MEDS: LIDO 1%/EPINEPHRINE 1:100,000 20 ML VIAL 30 ML INFILTRATE (11:41)
[2024-11-23] MEDS: BUPivacaine HCL 0.5% 10 ML AMP 30 ML INFILTRATE (11:42)
--- NOTE | 2024-11-23 12:11 | S_PTH ---
PATIENT: Mary Alice Nguyen LOC: [facility] U#:[id number] AGE/SX: 79/F ROOM: RE11/23/[address]: Derrick Gonzales MD : 1945 BED: DIS: 11/23/2024 SPEC #: [id number] RECD: 11/23/24 13:24 STATUS: JUSTUS REDana #: [id number] FEDERICO: 11/23/24 12:[address]: Derrick Gonzales DEPT: [facility] Surgical RECD BY: Matilda Donis ENTERED: 11/23/24 13:24 SP TYPE: Surgical OTHR DR: Zach LakeMD Tissues: A - Gallbladder Procedures: Hematoxylin and Eosin Stain Gross and Microscopic Level 3
[2024-11-23] MEDS: LACTATED RINGERS 1,000 ML 30 ML IV CONT ×2 (12:27)
--- NOTE | 2024-11-23 12:29 | P.OP_ITS ---
Procedure Note - Detailed Date of Procedure 11/23/24 Pre-op Diagnosis Biliary colic, bladder dysfunction Post-op Diagnosis Other (Chronic acalculous cholecystitis, gallbladder dysfunction) Procedure Performed Laparoscopic cholecystectomy Surgeon Derrick Gonzales MD Marketing Strategy Analyst Bonita Medina [facility] Anesthesia General Indications Patient is a 79-year-old female who presented with complaints of having epigastric and right upper quadrant abdominal pain for quite some time. The pain would be worse with eating. Abdominal ultrasound showed no evidence of gallstones and gallbladder sludge. No thickening of the gallbladder was seen. HIDA scan was then performed showing a low ejection fraction of gallbladder and only 2% signifying significant gallbladder dysfunction. She presents now for elective laparoscopic cholecystectomy. Findings The patient mildly distended gallbladder. The wall of the gallbladder was minimally thickened. There were adhesions of the omentum to the gallbladder wall suggestive of chronic inflammation of the gallbladder. No gallstones were palpated the gallbladder. Description of Procedure After informed consent was obtained patient brought to the operating room she was placed supine position and general endotracheal anesthesia was administered. The abdomen was then prepped and draped usual sterile fashion. A time-out was then performed correctly identifying the patient as well as procedure to be performed. She was given perioperative IV antibiotics. I then proceeded to enter the abdomen left upper quadrant utilizing a 5mm Optiview port. Once i nside the abdomen insufflated to adequate pneumoperitoneum of 15mmHg of CO2. There did not appear to be adhesions around the umbilicus I placed a 5mm Optiview port in this position. Laparoscopic was then switched over to this position and looking to the upper portion of the abdomen I could see the gallbladder clearly and so then I placed an epigastric 10mm trocar port as well as 2 more right subcostal 5mm trocar ports all under direct visualization. The gallbladder was then held the dome and elevated over the right half liver towards right shoulder. The gallbladder wall was minimally thickened. There were adhesions of the omentum to the gallbladder wall suggestive of chronic inflammation over time. I started to strip down the visceral peritoneum and omental adhesions off of the infundibular gallbladder. A 2nd grasper was then used to hold the gallbladder at the infundibulum and then I continued stripping down the visceral peritoneum off of the gallbladder to identify the cystic duct. The cystic duct was then dissected out circumferentially. The cystic artery was identified and dissected out circumferentially as well. The posterior wall the gallbladder at the infundibulum dissected free of the liver until the critical view was obtained. At this point I then placed 2 clips proximally cystic duct and 2 clips distally high on infundibular gallbladder. Cystic duct was divided Endo Tai. In a similar fashion cystic artery clipped and divided as well. The gallbladder was resected off the liver utilized electrocautery. There was no spillage of any bile. The gallbladder was then placed into an Endo-Catch bag and brought out through the epigastric port site. Gallbladder was palpated and I felt no gallstones within it. It was sent to pathology for examination. I then irrigated the right upper quadrant the abdomen gallbladder fossa sterile saline solution. Hemostasis was good. There is no evidence of bile leak. I then aspirated the fluid from the right upper quadrant the abdomen from the pelvis. I then removed the trocar ports under visualization and the abdomen was allowed to decompress. The port site incisions were then irrigated sterile saline solution. Hemostasis was good. I then closed the 10mm epigastric trocar port fascial defect utilizing 0 Vicryl suture at the fascial level. The skin edges in all the port sites were then approximated utilizing a running subcuticular 4-0 Monocryl suture. Incisions were then cleaned the skin glue was applied. The patient tolerated the procedure well no complications. All sponges, needles, and instrument counts were correct at the end procedure. EBL was _25__cc. The patient was awakened and taken to recovery in stable and satisfactory condition. Implants None Estimated Blood Loss 25 Drains No Packing No Pathology Yes (Gallbladder to pathology) Complications No immediate complications Condition Stable Disposition PACU [facility] Billing Surgery - Charge Forward: Surgery Billing
[2024-11-23] MEDS: fentaNYL CITRATE INJ (*CRX) 100 MCG/2 ML VIAL 25 MCG IV PUSH ×5 (12:44→13:24)
[2024-11-23] MEDS: oxyCODONE HCL (*CRX) 5 MG TAB IR PO (14:32)
== END 2024-11-23 14:52 | disposition home or self-care (01) ==
PROVIDERS: PCP Family Medicine; Visit Provider Surgery
PROC: 0FT44ZZ Resection of Gallbladder, Percutaneous Endoscopic Approach (ICD-10-PCS; CPT 47562; principal; 2024-11-23 10:30)
DX: K82.8 Other specified diseases of gallbladder (principal); K81.1 Chronic cholecystitis; K66.0 Peritoneal adhesions (postprocedural) (postinfection); K21.9 Gastro-esophageal reflux disease without esophagitis; Q87.89 Other specified congenital malformation syndromes, not elsewhere classified; Z79.1 Long term (current) use of non-steroidal anti-inflammatories (NSAID); E78.5 Hyperlipidemia, unspecified; I10 Essential (primary) hypertension; Z86.711 Personal history of pulmonary embolism; Z85.9 Personal history of malignant neoplasm, unspecified; Z80.9 Family history of malignant neoplasm, unspecified
CPT/HCPCS: 47562; 88304; J0690; A9270; J1100; J1885; J2004; J2405; J2704; J3010; J7120